=== PATIENT | male | born 1950 | race Caucasian/White ===

== ENCOUNTER 2020-12-17 02:38 | Inpatient (IN) | payer MEDICARE, MEDICAID ==
[~2020-12-17] VITALS: Ht 182.9 cm; Wt 68.0 kg
[~2020-12-17 02:38] MED LIST: AMOX TR-K CLV1 EAC4 PO; ARICEPT10 MG PO; ASPIRIN CHEWABL81 MG PO; AUGMENTIN 875-1 EACH PO; AZITHROMYCIN500 MG PO; CARDIZEM CD180 MG PO; CEFUROXIME500 MG PO; CLARITIN10 MG PO; COLCHICINE 0.60.6 MG PO; COUGH SYRU100 MG/5 M PO; ENTRESTO 24 MG1 EACH PO; FLOMAX 0.4 MG0.4 MG PO; HYDROCODON-ACE1 EAC6 PO; HYDROXYZINE HCL25 MG PO; IBUPROFEN800 MG PO; IPRAT-ALBUT 0.5-3 ML INH; KEPPRA750 MG PO; LEVAQUIN750 MG PO; LIPITOR TAB 2020 MG PO; LORTAB 10-3251 EACH PO; LYRICA25 MG PO; MIRALAX PACK 171 PKT PO; MIRALAX17 GM PO; MIRAPEX0.125 MG PO; NORCO 10-325 T1 EACH PO; NORVASC 5 MG TAB5 MG PO; OMEPRAZOLE20 M1 PO; OMNICEF 300 MG300 MG PO; PERCOCET 5-3251 EACH PO; PLAVIX 75 MG TA75 MG PO; PREDNISONE 10 M10 MG PO; PREDNISONE10 MG PO; PROPANOLOL PO; SPIRIVA18 MCG INH; SYMBICORT 160-1 INHA INH; TOPROL XL100 MG PO; TRAMADOL HCL50 MG PO; VENTOLIN HFA 66.7 GM INH; WELLBUTRIN XL150 M1 PO; ZOFRAN ODT 4 MG4 MG PO
[2020-12-17 03:20] LABS: HEMOGLOBIN 11.4 gm/dl (14.0-17.5); RED BLOOD COUNT 3.93 M/UL (4.20-5.50); WHITE BLOOD COUNT 9.5 K/UL (4.5-11.0)
[2020-12-17 03:39] LABS: BUN/CREATININE RATIO 36 (0-10)
--- NOTE | 2020-12-18 05:37 | NUR ---
0315 PT RESTLESS AND AGITATED, UNABLE TO OBTAIN ACCURATE VS. MD NEFF AWARE. ORDERS RECEIVED FOR PRECEDEX.
[2020-12-18 06:11] LABS: BUN/CREATININE RATIO 31 (0-10)
[2020-12-19 05:22] LABS: RED BLOOD COUNT 3.92 M/UL (4.20-5.50)
[2020-12-19 05:24] LABS: WHITE BLOOD COUNT 13.7 K/UL (4.5-11.0)
[2020-12-19 05:44] LABS: BUN/CREATININE RATIO 41 (0-10)
[2020-12-20 05:43] LABS: HEMOGLOBIN 11.1 gm/dl (14.0-17.5); RED BLOOD COUNT 3.97 M/UL (4.20-5.50)
[2020-12-20 06:09] LABS: BUN/CREATININE RATIO 36 (0-10)
--- NOTE | 2020-12-20 16:51 | NUR ---
LEVOPHED OFF AT 1430. VSS. ORDER TO TRANSFER TO PCU OBTAINED. 1630 BP 77/46. LEVOPHED RESTARTED. NOTIFIED. ORDER TO TRANSFER TO PCU ON LEVOPHED OBTAINED.
[2020-12-21 03:42] LABS: HEMOGLOBIN 11.2 gm/dl (14.0-17.5); RED BLOOD COUNT 3.95 M/UL (4.20-5.50); WHITE BLOOD COUNT 10.4 K/UL (4.5-11.0)
[2020-12-21 04:05] LABS: BUN/CREATININE RATIO 28 (0-10)
[2020-12-22 03:03] LABS: BUN/CREATININE RATIO 26 (0-10)
[2020-12-23 03:26] LABS: HEMOGLOBIN 11.6 gm/dl (14.0-17.5); RED BLOOD COUNT 4.07 M/UL (4.20-5.50); WHITE BLOOD COUNT 9.3 K/UL (4.5-11.0)
[2020-12-23 04:02] LABS: BUN/CREATININE RATIO 22 (0-10)
--- NOTE | 2020-12-24 02:56 | NUR ---
PATIENT COMPLAINED HE WAS UNABLE TO VOID, HE HAD HIS F/C RMOVED AT START OF THIS SHIFT, ATTEMPT TO BLADDER SCAN MACHINE NOT WORKING. MD WAS CALLED AND ORDERS GIVEN TO STRAIGHT CATH. TASK DONE AND PATIENT HAD APROXMATLY 50CC PATIENT SHOWN THE AMOUNT. HE STATES "HE HOPES THIS DOES NOT SET HIM BACK FROM GOING HOME IN AM"
[2020-12-24 03:28] LABS: BUN/CREATININE RATIO 33 (0-10)
[2020-12-24] MEDS ORDERED: NICOTINE PATCH1 EAC1 TOP (08:59)
--- NOTE | 2020-12-24 09:02 | NUR ---
PATIENT OXYGEN SATURATION ON ROOM AIR AT 88%.
--- NOTE | 2020-12-24 13:32 | NUR ---
PATIENT DISCHARGED, INSTRUCTION GIVEN, FAMILY AND PATIENT VERBALIZE UNDERSTANDING. REPORT CALLED TO PATRICK AT [facility]
== END 2020-12-24 13:26 | disposition home health service (06) | DRG 871 ==
LOC: ER1 02:38 → CCU 05:56 → PROG CARE 05:56 → CDU 05:56 → CCU 07:57 → PROG CARE 12-20 17:35
PROVIDERS: Family Medicine; Internal Medicine; Internal Medicine Pulmonary Disease; ADMIT Internal Medicine
PROC: B24BZZZ Ultrasonography of Heart with Aorta (ICD-10-PCS; 2020-12-17)
PROC: 5A09457 Assistance with Respiratory Ventilation, 24-96 Consecutive Hours, Continuous Positive Airway Pressure (ICD-10-PCS; 2020-12-17)
PROC: 3E033XZ Introduction of Vasopressor into Peripheral Vein, Percutaneous Approach (ICD-10-PCS; principal; 2020-12-18)
PROC: 02HV33Z Insertion of Infusion Device into Superior Vena Cava, Percutaneous Approach (ICD-10-PCS; 2020-12-18)
DX: A41.9 Sepsis, unspecified organism (principal); J96.21 Acute and chronic respiratory failure with hypoxia; J69.0 Pneumonitis due to inhalation of food and vomit; R65.21 Severe sepsis with septic shock; G93.41 Metabolic encephalopathy; R57.1 Hypovolemic shock; E43 Unspecified severe protein-calorie malnutrition; J96.22 Acute and chronic respiratory failure with hypercapnia; J44.0 Chronic obstructive pulmonary disease with (acute) lower respiratory infection; J44.1 Chronic obstructive pulmonary disease with (acute) exacerbation; R64 Cachexia; I42.8 Other cardiomyopathies; I50.32 Chronic diastolic (congestive) heart failure; F11.20 Opioid dependence, uncomplicated; Z20.822 Contact with and (suspected) exposure to COVID-19; N40.0 Benign prostatic hyperplasia without lower urinary tract symptoms; F17.210 Nicotine dependence, cigarettes, uncomplicated; G40.909 Epilepsy, unspecified, not intractable, without status epilepticus; G25.81 Restless legs syndrome; E78.5 Hyperlipidemia, unspecified; F03.90 Unspecified dementia, unspecified severity, without behavioral disturbance, psychotic disturbance, mood disturbance, and anxiety; R53.81 Other malaise; I27.20 Pulmonary hypertension, unspecified; I45.10 Unspecified right bundle-branch block; G30.9 Alzheimer's disease, unspecified; I11.0 Hypertensive heart disease with heart failure; G89.4 Chronic pain syndrome; R13.12 Dysphagia, oropharyngeal phase; I08.1 Rheumatic disorders of both mitral and tricuspid valves; F02.80 Dementia in other diseases classified elsewhere, unspecified severity, without behavioral disturbance, psychotic disturbance, mood disturbance, and anxiety; I25.10 Atherosclerotic heart disease of native coronary artery without angina pectoris; Z98.890 Other specified postprocedural states; Z82.49 Family history of ischemic heart disease and other diseases of the circulatory system; Z79.82 Long term (current) use of aspirin; Z79.02 Long term (current) use of antithrombotics/antiplatelets; Z80.1 Family history of malignant neoplasm of trachea, bronchus and lung; Z80.6 Family history of leukemia; Z88.8 Allergy status to other drugs, medicaments and biological substances; Z99.81 Dependence on supplemental oxygen; Z98.1 Arthrodesis status
CPT/HCPCS: ECHO; 36415; 36600; 71045; 74230; 80048; 80053; 80307; 81001; 82140; 82533; 82550; 82553; 82607; 82746; 82803; 83605; 83735; 83880; 84100; 84484; 85025; 85027; 85610; 86140; 87040; 92526; 92610; 92611-GN; 93005; 93306; 94640; 94660; 94664; 94760; 94762; 96374; 96375; 97110; 97162; 97166; 97530; 97530-GP-CQ; 97535; 99285; C1751; C9113; J0696; J0780; J1650; J2310; J2405; J2543; J2920; J2930; J3370; J3486; J7030; J7050; J7070; U0002